=== PATIENT | female | born 1940 | race Caucasian/White ===

== ENCOUNTER 2018-01-10 14:27 | Inpatient (IN) | payer OTHER, MEDICARE ==
[~2018-01-10] VITALS: Ht 157.5 cm; Wt 59.0 kg
[2018-01-10 14:36] VITALS: BP_SYST 149
[2018-01-10] MEDS ORDERED: VANCOMYCIN HCL 1,000 MG in NS 250 ML IV ONE (15:00)
[2018-01-10] MEDS ORDERED: VANCOMYCIN HCL 1000 MG/VIAL IV ONE (15:18)
[2018-01-10 16:01] LABS: BASOPHILS % (AUTO) 0.4 % (0.0-2.0); EOSINOPHILS # (AUTO) 0.2 K/uL (0.0-0.4); EOSINOPHILS % (AUTO) 2.6 % (0.0-4.0); HEMATOCRIT 42.4 % (36-48); HEMOGLOBIN 14.5 g/dL (12.0-16.0); LYMPHOCYTES # (AUTO) 0.6 K/uL (1.0-5.5); MEAN CORPUSCULAR HEMOGLOBIN 32 pg (27-31); MEAN CORPUSCULAR HGB CONC 34 % (32-36); MEAN CORPUSCULAR VOLUME 94 fL (79.0-98.0); MONOCYTES # (AUTO) 0.6 K/uL (0.0-1.0); MONOCYTES % (AUTO) 8.9 % (1.7-9.3); NEUTROPHILS # (AUTO) 5.3 K/uL (1.8-7.7); NEUTROPHILS % (AUTO) 79.1 % (40.0-70.0); PLATELET COUNT (AUTO) 182 K/uL (130-430); RED BLOOD CELL COUNT(AUTO) 4.52 MIL/uL (4.2-6.2); RED CELL DISTRIBUTION WIDTH 12.2 % (9.0-15.0); WHITE BLOOD COUNT (AUTO) 6.7 K/uL (4.8-10.8)
[2018-01-10 16:11] LABS: ANION GAP 12 (5-15); CALCIUM 9.2 mg/dL (8.4-11.0); CHLORIDE 101 mmol/L (98-107); GLUCOSE 185 mg/dL (70-99); POTASSIUM 3.8 mmol/L (3.5-5.1); SODIUM SERUM 138 mmol/L (136-145); UREA NITROGEN, BLOOD 13 mg/dL (8-21)
[2018-01-10 16:16] LABS: ALANINE AMINOTRANSFERASE 25 U/L (12-78); ALBUMIN 3.8 g/dL (3.4-4.8); ASPARTATE AMINOTRANSFERASE 22 U/L (10-37); TOTAL BILIRUBIN 0.5 mg/dL (0.0-1.0)
[2018-01-10 16:42] LABS: BILIRUBIN,URINE NEGATIVE (NEGATIVE); BLOOD, URINE NEGATIVE (NEGATIVE); CLARITY/URINE CLEAR (CLEAR); COLOR,URINE YELLOW (YELLOW); GLUCOSE,URINE NEGATIVE (NEGATIVE); KETONES,URINE NEGATIVE (NEGATIVE); LEUKOCYTE ESTERASE ,URINE NEGATIVE (NEGATIVE); NITRITE, URINE NEGATIVE (NEGATIVE); PROTEIN URINE NEGATIVE (NEGATIVE)
[2018-01-10] MEDS ORDERED: KETOROLAC TROMETHAMINE 15 MG VIAL IVP ONE (16:45)
[2018-01-10] MEDS ORDERED: ALBU2.5V7 INH (16:45)
[2018-01-10] MEDS ORDERED: IPRA0.2S6 INH (16:45)
[2018-01-10] MEDS ORDERED: LIP10 PO (16:45)
[2018-01-10] MEDS ORDERED: GLIM2TAB2 PO (16:45)
[2018-01-10] MEDS ORDERED: LISI10TA5 PO (16:45)
[2018-01-10 17:10] VITALS: BP_SYST 178
[2018-01-10] MEDS ORDERED: IPRATROPIUM BROM 0.5 MG/2.5 ML VIAL.NEB (ATROVENT) INH PRN (18:00)
[2018-01-10] MEDS ORDERED: ALBUTEROL SULFATE 0.083% 2.5 MG/3 ML VIAL.NEB INH PRN (18:00)
[2018-01-10] MEDS ORDERED: GLIMEPIRIDE 2 MG TABLET PO SCH (18:00)
[2018-01-10 18:06] VITALS: BP_SYST 156
[2018-01-10] MEDS ORDERED: traMADol HCL HCL 50 MG TABLET (ULTRAM) PO PRN ×2 (18:15)
[2018-01-10] MEDS ORDERED: ZOLPIDEM TARTRATE 5 MG TABLET PO PRN (18:30)
[2018-01-10] MEDS ORDERED: cloNIDine HCL 0.1 MG TABLET PO PRN (18:30)
[2018-01-10] MEDS ORDERED: ACETAMINOPHEN 325 MG TABLET PO PRN (18:30)
[2018-01-10 19:05] VITALS: BP_SYST 139
[2018-01-10] MEDS ORDERED: AMPICILLIN SODIUM/SULBACTAM NA 3 GM VIAL ONE ×2 (19:45→23:19)
[2018-01-10] MEDS: AMPICILLIN SODIUM/SULBACTAM NA 3 GM in NS 100 ML IV SCH (20:36)
[2018-01-10] MEDS: ENOXAPARIN SODIUM 40 MG/0.4 ML SYRINGE SUBCUT SCH (20:38)
[2018-01-10] MEDS: ATORVASTATIN 10 MG TABLET PO SCH (20:39)
[2018-01-11] MEDS: AMPICILLIN SODIUM/SULBACTAM NA 3 GM in NS 100 ML IV SCH ×5 (01:04→23:47)
[2018-01-11 02:22] VITALS: BP_SYST 151
[2018-01-11 05:45] VITALS: BP_SYST 151
[2018-01-11] MEDS: GLIMEPIRIDE 2 MG TABLET PO SCH ×2 (06:36→08:19)
[2018-01-11 07:16] LABS: BASOPHILS % (AUTO) 0.4 % (0.0-2.0); EOSINOPHILS # (AUTO) 0.2 K/uL (0.0-0.4); EOSINOPHILS % (AUTO) 5.5 % (0.0-4.0); HEMOGLOBIN 13.3 g/dL (12.0-16.0); LYMPHOCYTES # (AUTO) 0.5 K/uL (1.0-5.5); LYMPHOCYTES % (AUTO) 11.1 % (20.5-51.5); MEAN CORPUSCULAR HEMOGLOBIN 33 pg (27-31); MEAN CORPUSCULAR HGB CONC 35 % (32-36); MEAN CORPUSCULAR VOLUME 93 fL (79.0-98.0); MONOCYTES # (AUTO) 0.5 K/uL (0.0-1.0); MONOCYTES % (AUTO) 12.1 % (1.7-9.3); NEUTROPHILS # (AUTO) 3.2 K/uL (1.8-7.7); NEUTROPHILS % (AUTO) 70.9 % (40.0-70.0); PLATELET COUNT (AUTO) 126 K/uL (130-430); RED BLOOD CELL COUNT(AUTO) 4.09 MIL/uL (4.2-6.2); RED CELL DISTRIBUTION WIDTH 11.9 % (9.0-15.0); WHITE BLOOD COUNT (AUTO) 4.4 K/uL (4.8-10.8)
[2018-01-11 07:40] LABS: ANION GAP 6 (5-15); CALCIUM 8.6 mg/dL (8.4-11.0); CHLORIDE 104 mmol/L (98-107); CREATININE 0.62 mg/dL (0.55-1.30); GLUCOSE 146 mg/dL (70-99); POTASSIUM 4.1 mmol/L (3.5-5.1); SODIUM SERUM 139 mmol/L (136-145); UREA NITROGEN, BLOOD 11 mg/dL (8-21)
[2018-01-11 08:00] VITALS: BP_SYST 144
[2018-01-11] MEDS: LISINOPRIL 10 MG TABLET (PRINIVIL) PO SCH (08:19)
[2018-01-11 13:02] VITALS: BP_SYST 161
[2018-01-11] MEDS: VANCOMYCIN HCL 500 MG in NS 100 ML IV SCH (13:40)
[2018-01-11] MEDS ORDERED: LACTOBACILLUS RHAMNOSUS GG 1 CAP CAPSULE PO ONE (14:45)
[2018-01-11] MEDS ORDERED: CILOSTAZOL 50 MG TABLET (PLETAL) PO ONE (16:00)
[2018-01-11] MEDS ORDERED: ASPIRIN 81 MG TAB.CHEW PO ONE (16:00)
[2018-01-11 16:44] VITALS: BP_SYST 145
[2018-01-11 20:00] VITALS: BP_SYST 140
[2018-01-11] MEDS: LACTOBACILLUS RHAMNOSUS GG 1 CAP CAPSULE PO SCH (20:41)
[2018-01-11] MEDS: ATORVASTATIN 10 MG TABLET PO SCH (20:41)
[2018-01-11] MEDS: CILOSTAZOL 50 MG TABLET (PLETAL) PO SCH (20:42)
[2018-01-11] MEDS: ENOXAPARIN SODIUM 40 MG/0.4 ML SYRINGE SUBCUT SCH (20:44)
[2018-01-12] MEDS: VANCOMYCIN HCL 500 MG in NS 100 ML IV SCH ×2 (00:21→13:01)
[2018-01-12 00:24] VITALS: BP_SYST 114
[2018-01-12] MEDS: AMPICILLIN SODIUM/SULBACTAM NA 3 GM in NS 100 ML IV SCH ×4 (05:39→23:55)
[2018-01-12 08:00] VITALS: BP_SYST 111
[2018-01-12] MEDS: LACTOBACILLUS RHAMNOSUS GG 1 CAP CAPSULE PO SCH ×2 (09:18→20:31)
[2018-01-12] MEDS: CILOSTAZOL 50 MG TABLET (PLETAL) PO SCH ×2 (09:19→20:31)
[2018-01-12] MEDS: ASPIRIN 81 MG TAB.CHEW PO SCH (09:19)
[2018-01-12] MEDS: LISINOPRIL 10 MG TABLET (PRINIVIL) PO SCH (09:20)
[2018-01-12] MEDS: GLIMEPIRIDE 2 MG TABLET PO SCH (09:20)
[2018-01-12] MEDS ORDERED: IOHEXOL 350 mgI/mL, 150 ML INFUS..BTL IV ONE (11:15)
[2018-01-12 12:00] VITALS: BP_SYST 112
[2018-01-12 14:11] LABS: ANION GAP 10 (5-15); CALCIUM 8.7 mg/dL (8.4-11.0); CHLORIDE 102 mmol/L (98-107); CREATININE 0.85 mg/dL (0.55-1.30); GLUCOSE 146 mg/dL (70-99); POTASSIUM 3.6 mmol/L (3.5-5.1); SODIUM SERUM 138 mmol/L (136-145); UREA NITROGEN, BLOOD 11 mg/dL (8-21)
[2018-01-12 14:14] LABS: BASOPHILS % (AUTO) 0.3 % (0.0-2.0); EOSINOPHILS # (AUTO) 0.2 K/uL (0.0-0.4); EOSINOPHILS % (AUTO) 2.2 % (0.0-4.0); HEMATOCRIT 39.7 % (36-48); HEMOGLOBIN 13.6 g/dL (12.0-16.0); LYMPHOCYTES # (AUTO) 0.4 K/uL (1.0-5.5); LYMPHOCYTES % (AUTO) 5.9 % (20.5-51.5); MEAN CORPUSCULAR HEMOGLOBIN 32 pg (27-31); MEAN CORPUSCULAR HGB CONC 34 % (32-36); MEAN CORPUSCULAR VOLUME 93 fL (79.0-98.0); MONOCYTES # (AUTO) 0.7 K/uL (0.0-1.0); MONOCYTES % (AUTO) 9.7 % (1.7-9.3); NEUTROPHILS # (AUTO) 5.8 K/uL (1.8-7.7); NEUTROPHILS % (AUTO) 81.9 % (40.0-70.0); PLATELET COUNT (AUTO) 142 K/uL (130-430); RED BLOOD CELL COUNT(AUTO) 4.26 MIL/uL (4.2-6.2); WHITE BLOOD COUNT (AUTO) 7.1 K/uL (4.8-10.8)
[2018-01-12] MEDS ORDERED: DEXTROSE 50% JECT 50 ML DISP.SYRIN IVP PRN (15:00)
[2018-01-12 16:24] VITALS: BP_SYST 118
[2018-01-12 20:25] VITALS: BP_SYST 134
[2018-01-12] MEDS: ATORVASTATIN 20 MG TABLET PO SCH (20:30)
[2018-01-12] MEDS: ENOXAPARIN SODIUM 40 MG/0.4 ML SYRINGE SUBCUT SCH (20:32)
[2018-01-12] MEDS: INSULIN REGULAR, HUMAN 100 UNITS/ML, 10 ML VIAL (novoLIN R) SUBCUT PRN (20:33)
[2018-01-13 00:05] VITALS: BP_SYST 128
[2018-01-13] MEDS: VANCOMYCIN HCL 500 MG in NS 100 ML IV SCH (02:08)
[2018-01-13] MEDS: AMPICILLIN SODIUM/SULBACTAM NA 3 GM in NS 100 ML IV SCH (05:55)
[2018-01-13 07:21] LABS: ALANINE AMINOTRANSFERASE 15 U/L (12-78); ALBUMIN 2.9 g/dL (3.4-4.8); ANION GAP 8 (5-15); ASPARTATE AMINOTRANSFERASE 17 U/L (10-37); CALCIUM 8.6 mg/dL (8.4-11.0); CHLORIDE 106 mmol/L (98-107); GLUCOSE 141 mg/dL (70-99); POTASSIUM 3.7 mmol/L (3.5-5.1); SODIUM SERUM 142 mmol/L (136-145); TOTAL BILIRUBIN 0.8 mg/dL (0.0-1.0); UREA NITROGEN, BLOOD 6 mg/dL (8-21)
[2018-01-13 08:00] VITALS: BP_SYST 141
[2018-01-13 08:15] VITALS: BP_SYST 141
[2018-01-13] MEDS: LACTOBACILLUS RHAMNOSUS GG 1 CAP CAPSULE PO SCH ×2 (09:00→20:20)
[2018-01-13] MEDS: LISINOPRIL 10 MG TABLET (PRINIVIL) PO SCH (09:00)
[2018-01-13] MEDS ORDERED: VANCOMYCIN HCL 750 MG in NS 250 ML IV SCH (09:00)
[2018-01-13] MEDS: GLIMEPIRIDE 2 MG TABLET PO SCH (09:00)
[2018-01-13] MEDS: ASPIRIN 81 MG TAB.CHEW PO SCH (09:00)
[2018-01-13] MEDS: CILOSTAZOL 50 MG TABLET (PLETAL) PO SCH (09:00)
[2018-01-13] MEDS ORDERED: REGADENOSON 0.4 MG/5 ML SYRINGE IVP ONE (09:30)
[2018-01-13 15:10] LABS: BASOPHILS % (AUTO) 0.6 % (0.0-2.0); EOSINOPHILS # (AUTO) 0.1 K/uL (0.0-0.4); EOSINOPHILS % (AUTO) 2.1 % (0.0-4.0); HEMATOCRIT 36.8 % (36-48); HEMOGLOBIN 12.9 g/dL (12.0-16.0); LYMPHOCYTES # (AUTO) 0.4 K/uL (1.0-5.5); LYMPHOCYTES % (AUTO) 6.7 % (20.5-51.5); MEAN CORPUSCULAR HEMOGLOBIN 33 pg (27-31); MEAN CORPUSCULAR HGB CONC 35 % (32-36); MEAN CORPUSCULAR VOLUME 93 fL (79.0-98.0); MONOCYTES # (AUTO) 0.5 K/uL (0.0-1.0); MONOCYTES % (AUTO) 9.6 % (1.7-9.3); NEUTROPHILS # (AUTO) 4.7 K/uL (1.8-7.7); PLATELET COUNT (AUTO) 137 K/uL (130-430); RED BLOOD CELL COUNT(AUTO) 3.96 MIL/uL (4.2-6.2); RED CELL DISTRIBUTION WIDTH 12.4 % (9.0-15.0); WHITE BLOOD COUNT (AUTO) 5.7 K/uL (4.8-10.8)
[2018-01-13 15:24] LABS: ANION GAP 10 (5-15); CALCIUM 8.8 mg/dL (8.4-11.0); CHLORIDE 104 mmol/L (98-107); CREATININE 0.68 mg/dL (0.55-1.30); GLUCOSE 185 mg/dL (70-99); POTASSIUM 3.6 mmol/L (3.5-5.1); SODIUM SERUM 140 mmol/L (136-145); UREA NITROGEN, BLOOD 8 mg/dL (8-21)
[2018-01-13 15:37] LABS: INR 0.9 (0.8-1.2); PROTHROMBIN TIME 9.3 SECS (9.5-12.5)
[2018-01-13 20:00] VITALS: BP_SYST 164
[2018-01-13] MEDS: ATORVASTATIN 20 MG TABLET PO SCH (20:20)
[2018-01-13] MEDS: INSULIN REGULAR, HUMAN 100 UNITS/ML, 10 ML VIAL (novoLIN R) SUBCUT PRN (20:23)
[2018-01-13] MEDS ORDERED: DOXYCYCLINE HYCLATE 100 MG CAPSULE PO SCH (21:00)
[2018-01-13 22:23] VITALS: BP_SYST 149
[2018-01-14 00:18] VITALS: BP_SYST 149
[2018-01-14 01:20] VITALS: BP_SYST 155
[2018-01-14 08:35] VITALS: BP_SYST 137
== END 2018-01-14 08:40 | disposition short-term general hospital (02) | DRG 593 ==
LOC: SED 14:27 → SMU 16:41
PROVIDERS: ADMIT Internal Medicine; ATTEND Internal Medicine
DX: L97.319 Non-pressure chronic ulcer of right ankle with unspecified severity (principal); L03.115 Cellulitis of right lower limb; I87.8 Other specified disorders of veins; I10 Essential (primary) hypertension; E11.51 Type 2 diabetes mellitus with diabetic peripheral angiopathy without gangrene; I83.90 Asymptomatic varicose veins of unspecified lower extremity; E11.9 Type 2 diabetes mellitus without complications; E78.5 Hyperlipidemia, unspecified; J44.9 Chronic obstructive pulmonary disease, unspecified; Z87.891 Personal history of nicotine dependence; Z92.3 Personal history of irradiation; Z85.118 Personal history of other malignant neoplasm of bronchus and lung; Z88.1 Allergy status to other antibiotic agents; Z79.84 Long term (current) use of oral hypoglycemic drugs; Z79.899 Other long term (current) drug therapy; I70.8 Atherosclerosis of other arteries; I70.201 Unspecified atherosclerosis of native arteries of extremities, right leg
CPT/HCPCS: 36415; 73706; 80048; 80053; 80202-TC; 81003; 82962; 83036; 83605; 85025; 85610-TC; 85730-TC; 87040-TC; 87070-TC; 87081; 93005; 93017; 93306; 93923; 93970; 94640; 96365; 96366; 99285; A9500; J0295; J1650; J2785; J3370; J7050; J7613; Q9967